=== PATIENT | male | born 1975 | race Caucasian/White ===

== ENCOUNTER 2018-06-21 04:42 | Emergency (ER) | payer SELFPAY ==
--- NOTE | 2018-06-21 05:02 | NUR ---
CALLED FOR PT NOT IN WAITING ROOM
--- NOTE | 2018-06-21 05:17 | NUR ---
CALLED PT AGAIN NO ANSWER LWBT
== END 2018-06-21 05:19 | disposition left against medical advice (07) ==
LOC: ER 04:44
DX: Z53.21 Procedure and treatment not carried out due to patient leaving prior to being seen by health care provider (principal)